=== PATIENT | female | born 1995 | race Caucasian/White ===

== ENCOUNTER → 2023-04-15 14:45 | Outpatient (REF) | payer BC, SELFPAY | LOC: RAD 14:45 | PROVIDERS: ATTENDING PHYSICIAN Physician Assistant Medical | DX: M54.50 Low back pain, unspecified (principal) | CPT/HCPCS: 72110 ==

== ENCOUNTER → 2023-07-12 06:49 | Outpatient (REF) | payer BC, SELFPAY | LOC: MRI 06:49 | PROVIDERS: ATTENDING PHYSICIAN Student in an Organized Health Care Education/Training Program; FAMILY PHYSICIAN Nurse Practitioner | DX: M54.50 Low back pain, unspecified (principal); M54.16 Radiculopathy, lumbar region; M51.36 Other intervertebral disc degeneration, lumbar region | CPT/HCPCS: 72148 ==

== ENCOUNTER → 2023-12-07 10:04 | Outpatient (REF) | payer BC, SELFPAY | LOC: RAD 10:04 | PROVIDERS: ATTENDING PHYSICIAN Family Medicine | DX: R05.1 Acute cough (principal) | CPT/HCPCS: 71046 ==

== ENCOUNTER → 2024-01-23 14:52 | Outpatient (REF) | payer BC, SELFPAY | LOC: RAD 14:52 | PROVIDERS: ATTENDING PHYSICIAN Nurse Practitioner | DX: J18.9 Pneumonia, unspecified organism (principal) | CPT/HCPCS: 71046 ==

== ENCOUNTER 2024-05-13 18:07 | Emergency (ER) | payer BC, SELFPAY ==
[2024-05-13 18:08] VITALS: BP 142/87
[2024-05-13 20:13] VITALS: BP 159/98
[2024-05-13 20:22] VITALS: BMI 32.0
--- NOTE | 2024-05-13 20:30 | ED.GENMED ---
History of Present Illness
General
Chief Complaint: Allergic Reaction
Source: patient
Exam Limitations: none
Time Seen by Provider: 05/13/24 20:15
Nursing documentation reviewed up to this point in time: agreed with
History of Present Illness
History of Present Illness:
Patient to ED with complaint of itchy rash to chest, hands, feet. States she completed a course of amoxicillin on saturday for an ENT infection. States saturday she noted a rash to trunk which continued to worsen. Reported itchiness. She tried
benadryl, hydrocortisone, pepcid without improvement. SHe was evaluated at on Saturday and placed on a medryl dose pack. No change in symptoms. she denies any fever/chills, SOB. To ED accompanied by mother.
Past History
Past History
ED Past Medical History: None
Review of Systems
Review of Systems
Allergies reviewed?: Yes
All Other Systems: ROS reviewed and negative except as documented in HPI and ROS
Constitutional: Reports no symptoms
EENT: Reports no symptoms
Respiratory: Reports no symptoms
Cardiac: Reports no symptoms
ABD/GI: Reports no symptoms
Musculoskeletal: Reports no symptoms
Skin: Reports other (itchy rash to chest. Itching to hands and feet.)
Neurological: Reports no symptoms
Psychiatric: Reports no symptoms
Phy Exam
General Physical Exam
General Presentation: well appearing and no apparent distress
General age: appears stated age
General Skin: warm and dry
General Habitus: normal
General Mental: alert
Musculoskeletal Exam
Musculoskeletal Exam: full ROM
Skin Exam
Skin Exam: normal color, warm/dry and other (papular rash to chest. No rash noted on hands or feet. )
Psychiatric Exam
Psychiatric Exam: normal mood/affect
Course
Orders/Labs/Results
Orders:
Orders
05/13/24 20:27
Dexamethasone Pf [Decadron] 10 mg PO NOW STA
Vital Signs
Initial and Last Documented VS:
Initial Vital Signs
Temp Pulse Resp BP Pulse Ox
98.6 F 93 16 142/87 99
05/13/24 18:08 05/13/24 18:08 05/13/24 18:08 05/13/24 18:08 05/13/24 18:08
Last Documented Vital Signs
Temp Pulse Resp BP Pulse Ox
98.9 F 93 18 159/98 99
05/13/24 20:13 05/13/24 20:13 05/13/24 20:13 05/13/24 20:13 05/13/24 20:20
*Critical Care Note
Total Time (30-74mins, 75-104mins- exclusive of procedures): Not Applicable
Update Note
Update Note:
Patient to ED for eval of itchy rash. Taking medrol dose pack without improvement. Rash most likely related to recent course of amoxicillin. Will place on prednisone taper. Given dose of decadron in ED. No difficulty breathing or swallowing.
WIll discharge home and recommend follow up with PCP in 1-2 days. She was given instructions on s/s to return to ED and she is agreeable to plan.
ED Attending Note
-
Portions of this chart may have been created with voice recognition software.� Occasional wrong word or��sound alike� substitutions may have occurred due to the inherent limitations of voice recognition software.
Discharge Plan
Departure
Patient Disposition: Home (Routine Discharge)
Date of Disposition: 05/13/24
Time of Disposition: 20:27
Patient with high blood pressure during this ER visit?: No
Condition: Good
Covid-19: Not Applicable
Discharge Problem:
Allergic reaction
Instructions: Adverse Drug Reactions, Adult (DC), Itchy skin
Prescriptions:
New
prednisone 10 mg Tablet
See Rx Instructions .ROUTE .COMPLEX Qty: 30 0RF
Rx Instructions:
Take By Mouth:
40 mg daily x3 days, 30 mg daily x3 days,
20 mg daily x3 days, 10 mg daily x3 days.
Stand Alone Forms: Return to Work
Activity Restrictions/Additional Instructions:
Follow up with your family doctor. Discontinue methylprednisone. Return to the emergency department immediately for any difficulty breathing or swallowing.
Interventions
Interventions:
*Risk Screen - Suicide Last Done: 05/13/24 18:11
*General Assessment Last Done: 05/13/24 20:18
*Neglect/Abuse Screening Last Done: 05/13/24 18:11
*ED- Fall Risk Assessment Last Done: 05/13/24 20:17
*ED COVID-19 Vaccine History Last Done: 05/13/24 20:17
*Nursing Disposition Last Done: 05/13/24 20:52
ED- Cardiac Assessment Last Done: 05/13/24 20:20
ED- Pulmonary Assessment Last Done: 05/13/24 20:20
ED-Skin Assessment Last Done: 05/13/24 20:21
Discharge Date and Time
Discharge Date/Time: 05/13/24 20:52
Print Language: POLISH
[2024-05-13] MEDS: DECADRON 10 MG PO (20:46)
== END 2024-05-13 20:52 | disposition home or self-care (01) ==
LOC: EMR 18:07
PROVIDERS: EMERGENCY PHYSICIAN Student in an Organized Health Care Education/Training Program; FAMILY PHYSICIAN Nurse Practitioner
DX: T78.40XA Allergy, unspecified, initial encounter (principal); X58.XXXA Exposure to other specified factors, initial encounter; Z79.2 Long term (current) use of antibiotics
CPT/HCPCS: 99283

== ENCOUNTER → 2024-07-27 16:02 | Outpatient (REF) | payer BC, SELFPAY | LOC: MRI 3T 16:02 | PROVIDERS: ATTENDING PHYSICIAN Psychiatry & Neurology Neurology; FAMILY PHYSICIAN Nurse Practitioner | DX: G43.909 Migraine, unspecified, not intractable, without status migrainosus (principal) | CPT/HCPCS: 70551 ==